=== PATIENT | female | born 1950 | race Caucasian/White ===

== ENCOUNTER → 2017-03-17 08:23 | Outpatient (CLI) | payer MEDICARE | END | disposition home or self-care (01) | LOC: D.CT 08:23 | DX: R94.39 Abnormal result of other cardiovascular function study (principal) ==

== ENCOUNTER 2017-04-05 05:00 | Inpatient (IN) | payer MEDICARE ==
[2017-04-02 09:56] LABS: HEMATOCRIT 41.3 % (36.0-48.0); HEMOGLOBIN 13.3 g/dL (12-16); MCH 29.2 pg (26.0-34.0); MCHC 32.2 g/dL (31.0-37.0); MCV 90.6 fL (80.0-100.0); MEAN PLATELET VOLUME 10.8 fL (7.4-10.4); RBC 4.56 10x6/uL (4.00-5.40); RDW 12.7 % (11.5-14.5); WBC 6.6 10x3/uL (4.8-10.8)
[2017-04-02 10:25] LABS: APPEARANCE HAZY (CLEAR); BILIRUBIN NEGATIVE (NEGATIVE); COLOR YELLOW (YELLOW); GLUCOSE NEGATIVE (NEGATIVE); KETONE NEGATIVE (NEGATIVE); LEUKOCYTE ESTERASE TRACE (NEGATIVE); NITRITE NEGATIVE (NEGATIVE); PROTEIN 1+ mg/dL (NEGATIVE); UROBILINOGEN NORMAL (NORMAL)
[2017-04-02 10:34] LABS: BACTERIA FEW /hpf (NONE SEEN); HYALINE CAST OCC /lpf (NONE SEEN); RED CELLS - URINE RARE /hpf (0-5); WHITE CELLS - URINE 0-5 /hpf (0-5)
[2017-04-02 10:44] LABS: APTT 29.4 SECONDS (22.8-39.4); INR 0.94 (0.85-1.17); PROTIME 12.4 SECONDS (11.6-15.0)
[2017-04-02 10:47] LABS: ALBUMIN 3.8 g/dL (3.4-5.0); ANION GAP 13.7 mmol/L (8-16); BILIRUBIN - TOTAL 0.5 mg/dL (0.2-1.3); CALCIUM 10.3 mg/dL (8.5-10.1); CARBON DIOXIDE 28.8 mmol/L (21.0-32.0); CREATININE - SERUM 1.2 mg/dL (0.6-1.3); POTASSIUM - SERUM 4.5 mmol/L (3.5-5.1); PROTEIN - SERUM 7.9 g/dL (6.4-8.2)
--- NOTE | 2017-04-03 13:26 | HP ---
PATIENT: ERIKA PITTS MEDICAL RECORD: [id number] ACCOUNT: [id number] LOCATION:[facility] : 48 ADMISSION DATE: 04/05/17 HISTORY AND PHYSICAL EXAMINATION ERIKA Patiño (66yo, F) ID# [id number]. Date/Time03/29/2017 01:80DAVFP85 1950[facility] Dept.[facility] ClinicProviderEDMONROE PHILLIPS MDInsuranceMed Primary: [employer] (MEDICARE REPLACEMENT/ADVANTAGE - HMO) Insurance # : [id number] PCP : DANIELLA RENE Referring Provider Name : DANIELLA RENE Employer Name : UNKNOWN Prescription: CMX - Member is eligible. Chief Complaint Carotid stenosis REFERRAL FROM DR RENE Patient's Care Team Primary Care Provider (): DANIELLA RENE: [address] [address], , Referring Provider (): DANIELLA RENE: [address] [place] [address], , Patient's Pharmacies [facility] (ERX): [address] [facility] [address], , Vitals BP:18 4/70 sitting R arm 03/29/2017 01:14 pm 158/72 sitting L arm 03/29/2017 01:15 pmBP Cuff Size:large adult 03/29/2017 01:14 pm large adult 03/29/2017 01:15 pmHR:80,REG 03/29/2017 01:15 pmHt:5 ft 8 in 03/29/2017 01:15 pmWt:230 lbs 03/29/2017 01:16 pmNotes:HAD C/O LEFT LE PAIN, EDGARD SENT HER FOR A CAROTID DOPPLER? THEN A CTA.03/29/2017 01:17 pmBMI:35 03/29/2017 01:16 pmAllergies Reviewed Allergies MORPHINEPENICILLINSSULFA (SULFONAMIDE ANTIBIOTICS)Medications Reviewed Medications Accu-Chek Agustina Control Soln /12/11 howaziJpuhEaxp-CmEzwocliOhcb-Jsgc Multiclix Umgebz72/12/11 filledCareMark-RxAmericaalendronate 70 mg effervescent tablet Take 1 tablet(s) every week by oral route.03/26/17 enteredDelisa Brownalendronate 70 mg rdcnus42/02/17 filledCaremarkAspir-81 1 tablet daily03/26/17 enteredCindonato BrownCaltrate 600 + D 600 mg (1,500 mg)-800 unit chewable tablet Take 1 tablet(s) twice a day by oral route.03/26/17 enteredDelisa PiperdilTIAZem 90 mg wjvufw23/09/17 filledCaremarkglyBURIDE 2.5 mg rihpsp37/17/11 filledCareMark-RxAmericaLasix 20 mg tablet Take 1 tablet(s) every day by oral route as needed.03/26/17 enteredDelisa Piperlosartan 25 mg tablet Take 1 tablet(s) every day by oral route.03/26/17 enteredCindonato Brownlovastatin 20 mg zxkocn53/19/17 filledCaremarkmetFORMIN 1,000 mg xupgte01/19/17 filledCaremarkOneTouch Verio /29/17 filledCaremarkPlavix 75 mg tablet Take 1 tablet(s) every day by oral route.03/29/17 Judit Phillips, MDpotassium chloride ER 10 mEq capsule,extended tlegjxp71/09/17 filledCaremarkPROzac 20 mg capsule Take 1 capsule(s) every day by oral route.03/26/17 enteredDelisa LdizbYekspmnsox62/07/17 enteredDelisa PiperProblems Reviewed Problems HISTORY AND PHYSICAL [id number] ERIKA PITTS Bilateral carotid artery stenosis - Onset: 03/29/2017 Carotid artery stenosis - Onset: 03/26/2017 Disorder of breast Breast lump Family History Discussed Family History Sister- Diabetes mellitus - previously recorded as DiabetesFather- Malignant tumor of prostate - previously recorded as Cancer, ProstateSocial History Discussed Social History General Marital status: Smoking Status: Never smoker Alcohol intake: None Caffeine intake: None Surgical History Reviewed Surgical History Other - hysterectomy none APPLICATION TESTER History (not configured) Past Medical History Discussed Past Medical History Depression: Y - Diabetes: Y - GERD: Y Stroke: Y - Seizures/Epilepsy: N - Notes: ms and raynauds syndrome Documents for Discussion N/A Screening None recorded. HPI Cerebral Vascular Disease Reported by patient. Associated Symptoms: no headache; no nausea; no vomiting; no tinnitus; no difficulty speaking; no lethargy; no fever; no chills; no palpitations; no syncope; no loss of consciousness Notes: HX CVA 1993 critical right internal carotid artery stenosis ROS Patient reports exercise intolerance but reports no fever, n o night sweats, no significant weight gain, and no significant weight loss. She reports muscle aches, muscle weakness, arthralgias/joint pain, and back pain but reports no swelling in the extremities; varicose veins. She reports no dry eyes, no irritation, and no vision change. She reports no difficulty hearing and no ear pain. She reports no frequent nosebleeds and no nose/sinus problems. She reports no sore throat, no bleeding gums, no snoring, no dry mouth, no mouth ulcers, no oral abnormalities, and no teeth problems. She reports no chest pain, no arm pain on exertion, no shortness of breath when walking, no shortness of breath when lying down, no palpitations, and HISTORY AND PHYSICAL [id number] GISSELLEERIKA ANDREY no known heart murmur. She reports no cough, no wheezing, no shortness of breath, and no c oughing up blood. She reports no abdominal pain, no vomiting, normal appetite, no diarrhea, not vomiting blood, no nausea, and no constipation. She reports no incontinence, no difficulty urinating, no hematuria, and no increased frequency. She reports no a bnormal mole, no jaundice, and no rashes. She reports no loss of consciousness, no weakness, no numbness, no seizures, no dizziness, and no headaches. She reports no depression, no sleep disturbances, feeling safe in relationship, and no alcohol abuse. Sh e reports no fatigue. She reports no swollen glands and no bruising. She reports no runny nose, no sinus pressure, no itching, no hives, and no frequent sneezing. ROS as noted in the HPI Physical Exam Patient is a 66-year-old female. Constitutional: General Appearance healthy-appearing and obese. Level of Distress NAD. Ambulation ambulating normally. Cardiovascular: Apical Impulse not displaced or no thrill. Heart Auscultation normal s1 and s2; no murmurs, rubs, or gallops; and RRR. Arterial Pulses no abd ominal aorta bruits, femoral bruits, or popliteal bruits and 2+ bilateral, carotid 2+ bilateral, femoral 2+ bilateral, popliteal 2+ bilateral, and dorsalis pedis 2+ bilateral; right carotid bruit. Edema no edema or varicosities. Lungs: Repiratory Effort no dyspnea. Percussion no hyperresonance or dullness or flatness. Auscultation no wheezing, rhonchi, or rales / crackles and breathing sounds normal, good air movement, and CTA except as noted. Abdomen: Bowl Sounds normal. Inspection and Palpation no tenderness, guarding, masses, or rebound tenderness and soft and non-distended. Liver non-tender and no hepatomegaly. Spleen non-tender and no splenomegaly. Hernia none palpable. Musculoskeletal System: Gait And Stance normal gait and stance. Digits and Nails normal nails and no cyanosis. Neurologic: Cranial Nerves grossly intact. Reflexes DTRs 2+ bilaterally throughout. Sensation grossly intact; aphasia. Lymph Nodes: Lymph Nodes no cervical LAD, supraclavicular LAD, axillary LAD, or inguinal LAD. Eyes: Lids and Conjunctivae no discharge or pallor and non-injected. Pupils PERRLA. Cornea grossly intact. EOM EOMI. Lens clear. Sclera non-icteric. Neck: Neck no masses or enlarged lymph nodes and supple, trachea midline, and carotid bruits (right). Thyroid no enlargement or nodules and non-tender. Skin: Inspection and Palpation no rash, lesions, ulcers, jaundice, or abnormal nevi. Assessment / Plan critical right internal carotid artery stenosis History of stroke and aphasia 1. Carotid artery stenosis I65.29: Occlusion and stenosis of unspecified carotid artery CAROTID STENOSIS: CARE INSTRUCTIONS HISTORY AND PHYSICAL [id number] ERIKA PITTS 2. Bilateral carotid artery stenosis - right greater than 90% area stenosis Left 40-50% stenosis I65.23: Occlusion and stenosis of bilateral carotid arteries Discussion Notes CT angiogram demonstrates greater than a 90% area stenosis of her right internal carotid artery. I have discussed her disease process with her in detail as well as the alternative methods of treatmen t. We discussed right carotid endarterectomy including the expected benefits and risk which included bleeding, infection, stroke, and the imponderables. She understands all of the above and wishes to proceed with planned procedure Plavix 75 mg a day start today Schedule right carotid endarterectomy NATHAN PHILLIPS MD at 1326 CC: [id number] DICTATION DATE: 03/29/17 1315 LARD MAKER: GARRET 04/01/17 1239 PRE IN [facility] [address] [place] [address]
[~2017-04-05] VITALS: Ht 168.9 cm; Wt 106.2 kg
[2017-04-05] VITALS (56 sets, daily range): BP systolic 108–156; BP diastolic 34–50; Ht 168.9 cm; Wt 106.2 kg
--- NOTE | ~2017-04-05 | OP ---
PATIENT NAME: ERIKA PITTS MEDICAL RECORD: [id number] :46 LOCATION:[facility].CV03 ADMISSION DATE:04/05/17 SURGEON: NATHAN PHILLIPS MD OPERATION DATE: 04/05/17 SURGEON: Nathan Phillips M.D. ANESTHESIA: General endotracheal by Dr. Marvin. PROCEDURE: Right carotid endarterectomy with patch angioplasty. PREOPERATIVE DIAGNOSIS: Severe right internal carotid artery stenosis. POSTOPERATIVE DIAGNOSIS: Severe right internal carotid artery stenosis. INDICATION FOR OPERATION: Critical right internal carotid artery stenosis. FINDINGS OF OPERATION: Critical right internal carotid artery stenosis. Very small opening into the internal carotid artery. ESTIMATED BLOOD LOSS: Less than 100 mL. PROCEDURE IN DETAIL: After informed consent, adequate preoperative medication, and evaluation, the patient was brought to the operating room and placed stable in the supine position. After induction of general endotracheal anesthesia and application of appropriate monitoring devices, the right neck and chest were prepped and draped in sterile field utilizing Betadine scrub, alcohol, and Betadine solution. Betadine impregnated drape was also used. An oblique incision was made in the skin crease. Dissection carried down to the fascia. Hemostasis maintained with electrocautery. Facial vein was identified and divided utilizing sharp dissection. The common carotid, internal and external carotid arteries were dissected free of surrounding structures protecting the neurological structures. The patient was given a calculated dose of Heparin. After three minutes, clamps were applied. After two minutes with no EEG change, the arteriotomy was made and extended with Rader scissors. Artery underwent endarterectomy sharply. Artery underwent extensive debridement and irrigation. Utilizing a vascular patch and running 7-0 Prolene suture, the arteriotomy was closed with a patch angioplasty technique. All maneuvers to remove trapped air performed. Clamps removed sequentially. There were no EEG changes. Patient was given a calculated dose of protamine to reverse the Heparin. Hemostasis was achieved. A #7 Tony-Puri drain was left in the depths of the wound and brought out through the base of the neck. Neck was again irrigated. Instrument count and sponge count were correct times two. Neck was closed in layers utilizing 3-0 Vicryl on the platysma and 5-0 subcuticular Monocryl on the skin. Sterile dressings were applied. The patient tolerated the procedure well and was transferred to the Cardiovascular-Intensive Care Unit in satisfactory condition. OPERATIVE REPORT [id number] ERIKA PITTS EDWARD MD CC: [id number] DICTATION DATE: 04/05/17999 SAP PPM CONSULTANT: GARRET 04/05/17 1124 ADM IN [place] [id number] [place] [address]
[~2017-04-05 05:00] MED LIST: ALENDRONATE SOD70 MG PO; ASPIRIN EC81 M1 PO; CALTRATE+D3 PL1 EACH PO; CARDIZEM 90 MG90 MG PO; COZAAR25 MG PO; FUROSEMIDE20 MG PO; GLUCOPHAGE1000 MG PO; GLYBURIDE2.5 MG PO; KLOR-CON 1010 MEQ PO; LOVASTATIN20 MG PO; PLAVIX75 MG PO; PROZAC20 MG PO; REGLAN10 MG PO; ZANTAC150 MG PO
--- NOTE | 2017-04-05 10:24 | NUR ---
PT ARRIVED BY BED FROM OR. SWITCHED TO ICU MONITORS. ASSESSMENT COMPLETED. PT HAS HISTORY OF DYSPHASIA. UNABLE TO SPEAK DUE TO CVA APPROX 20 YEARS AGO. REPORTS THAT SHE CAN TAKE P.O. MEDS WITH SIPS OF WATER AND MECHANICAL SOFT DIET.
--- NOTE | 2017-04-05 11:00 | NUR ---
FAMILY AT BEDSIDE WITH DR. PHILLIPS. UPDATED ON PT'S STATUS.
--- NOTE | 2017-04-05 13:15 | NUR ---
PT RESTING COMFORTABLY. DENIES PAIN AT THIS TIME. CALL LIGHT WITHIN REACH.
--- NOTE | 2017-04-05 18:08 | NUR ---
FAMILY AT BEDSIDE. UPDATED ON PT'S STATUS. PT DOES NOT WANT FOOD AT THIS TIME. ONLY WANTING LIQUIDS. TOLERATING WELL.
--- NOTE | 2017-04-05 19:30 | NUR ---
Assessment complete. See flowsheet. Pt awake upon entrance into room with VSS. Pt with history of expressive aphasia from previous stroke but nodding head to questioning and following all commands to move extremities with 4/5 strength noted to all extremities. Pupils size 3 bilaterally ERRLA. Respirations even and unlabored. Pt receiving O2 @ 3L NC. Lung sounds clear to all rodriguez with diminished lower lobes. HR SR with S1S2 auscultated. All peripheral pulses +2 with capillary refill <3 seconds. No edema noted. Left radial JERRY site CDI; zeroed and balanced showing good waveform with appropriate dichrotic notch. Left DLSC CVL site CDI no s/s infection or infiltration with CVP zeroed and balanced reading 12 currently. Plasmalyte infusing @ 30cc/hr with Cleviprex gtt infusing @ 15mg/hr and increased to 17mg/hr during assessment to maintain SBP < 140mmHg. Abdomen soft, non-tender with BS present to all quadrants. Ramirez catheter secure retrieving clear, yellow urine. Right upper chest BRIANNA drain compressed retrieving scant amount sanguanous blood. Right carotid incision site dressing CDI with NO drainage noted to site. Pt denies pain at this time and sitting up in bed with HOB approx 40 degrees. Temp 37.6C per criticore. Call light and bedside table within pt reach. Icepack to right neck refreshed. CPOC.
--- NOTE | 2017-04-05 21:30 | NUR ---
Pt repositioned to right side with minimal assistance after PM medication administration. FSBS 179mg/dL and covered per S/S. Fresh water provided per pt request. No other changes to note. Call light and bedside table remain within reach. CPOC.
--- NOTE | 2017-04-05 22:30 | NUR ---
Cleviprex gtt increased to 20mg/hr to achieve SBP < 140
--- NOTE | 2017-04-05 22:30 | NUR ---
Cleviprex gtt rate increased to 40mg/hr to achieve SBP < 140
--- NOTE | 2017-04-05 23:30 | NUR ---
Reassessment complete. See flowsheet. Pt awake upon entrance into room with no neuro changes to note. O2 @ 3L NC. Lung sounds remain clear to all rodriguez with diminished lower lobes. Carotid incision site CDI; unchanged. Ice pack remains to site. Pt denies pain at this time. HR SR with occasional PVCs noted. S1S2 auscultated. All peripheral pulses remain +2 with capillary refill <3 seconds. JERRY site CDI, zeroed and balanced showing good waveform with appropriate dichrotic notch. CVL site CDI with NO IVF changes to note. BS present to all quadrants. Criticore west catheter remains secure retrieving clear/yellow urine. Pt repositioned to right side. HOB @ 40 degrees. Heels and arms bridged. BRIANNA drain to right upper chest remains compressed and retrieving scant sanguanous fluid. KINZA/SCDs secure. Call light and bedside table remain within pt reach. CPOC.
[2017-04-06] VITALS (33 sets, daily range): BP systolic 111–140; BP diastolic 43–51
--- NOTE | 2017-04-06 01:30 | NUR ---
Pt repositioned. HOB lowered to 30 degrees. Arms and heels repositioned. JERRY site zeroed and balanced. NO IVF changes to note. Pain denied. No neuro changes to note. CPOC.
--- NOTE | 2017-04-06 02:42 | NUR ---
Cleviprex gtt rate decreased to 18mg/hr
--- NOTE | 2017-04-06 03:30 | NUR ---
Reassessment complete. See flowsheet. No neuro changes to note. Cleviprex gtt rate weaned to 18mg/hr for SBP 120s. Will continue to attempt full wean of medication with maintenance of SBP < 140mmHg. Incision site remains CDI; unchanged with BRIANNA drain compressed with no fluid in bulb. CVL site CDI. JERRY site zeroed and balanced. Lung sounds remain CTA. Respirations shallow/unlabored. HR SR. S1S2 auscultated. BS +. Ramirez remains secure retrieving clear/yellow urine. Pain denied. Pt refuses repositioning at this time. No request. Call light and bedside table remain within reach. CPOC.
--- NOTE | 2017-04-06 03:41 | NUR ---
Cleviprex gtt weaned to 16mg/hr. Pt helped with sips of water.
--- NOTE | 2017-04-06 04:24 | NUR ---
Cleviprex gtt decreased to 14mg/hr
--- NOTE | 2017-04-06 05:30 | NUR ---
Pt resting with VSS. Cleviprex gtt decreased to 10mg/hr
--- NOTE | 2017-04-06 05:55 | NUR ---
Samira York here with update given and questions addressed. BRIANNA drain removed with tegaderm dressing applied.
--- NOTE | 2017-04-06 06:01 | NUR ---
Cleviprex gtt weaned to 8mg/hr
--- NOTE | 2017-04-06 06:44 | NUR ---
Cleviprex gtt turned off. VSS. Pt resting.
--- NOTE | 2017-04-06 07:48 | NUR ---
0730 REPORT RECEIVED AND CARE ASSUMED OF PT. SEE FLOW SHEET FOR AM ASSESMENT.. PT IS SLEEPING EASILY ROUSED AT THIS TIME AND RESPONSIVE.. PT IS APHASIC .. FOLLOWS COMMANDS.. CLEVPREX IV FLUID IS OFF AT THIS TIME BP SYS IS 136
--- NOTE | 2017-04-06 10:00 | NUR ---
LEFT RADIAL A-LINE D/C'D WITH CATH TIP INTACT. PT TOLERATED WELL. VSS. NICHOLSON CATHETER D/C'D PER MD ORDERS. PT TOLERATED WELL.
--- NOTE | 2017-04-06 10:15 | NUR ---
PHYSICAL THERAPY AT BEDSIDE. PT ASSISTED UP TO CHAIR. TOLERATED WELL. CALL LIGHT WITHIN REACH.
--- NOTE | 2017-04-06 12:30 | NUR ---
PT AMBULATED WITHOUT DIFFICULTY. TOLERATED WELL.
--- NOTE | 2017-04-06 12:57 | NUR ---
* Is the patient Alert and Oriented? Yes 0 * How many steps to enter\exit or inside your home? 0 0 * PCP Dr. Dillard 0 * Pharmacy [facility] on [address] 0 * Preadmission Environment Home with Family 0 * ADLs Independent 0 * List name and contact numbers for known caregivers / representatives who currently or will assist patient after discharge: Spouse - Edy [phone] 0 * Additional services required to return to the preadmission environment? No 0 * Can the patient safely return to the preadmission environment? Yes 0 * Has this patient been hospitalized within the prior 30 days at any hospital? No 0 Patient Name: ERIKA PITTS Admission Status: Elective Accout number: [id number] Admission Date: 04-05-2017 : 1950 Admission Diagnosis:OCCLUSION AND STENOSIS OF BILATERAL CAROTID ARTERIES Attending: RAIN Current LOS: 1 Anticipated DC Date: 04-06-2017 Planned Disposition: Home [facility] Discharge Planning Comments: CM met with patient to assess dc plans/needs. Patient uses [employer] to communicate. She writes that she lives at home with her & that she is independent with all ADL's & IADL's. She does not use any assistive devices or had home health services in the past. At dc, she will return home with her . No needs identified or verbalized at this time. CM will follow. Nutrition Worker: Tiffanie Fam
--- NOTE | 2017-04-06 13:30 | NUR ---
LEFT DLSC D/C'D WITH CATH TIP INTACT. PT TOLERATED WELL. NO S/S OF DISTRESS NOTED.
--- NOTE | 2017-04-06 13:50 | NUR ---
DISCUSSED DISCHARGE INSTRUCTIONS WITH PT AND PT'S . HE VOICED UNDERSTANDING. THEY REPORT THEY HAVE ALL BELONGINGS IN HAND. PT TAKEN BY WHEELCHAIR TO VEHICLE. NO S/S OF DISTRESS NOTED.
== END 2017-04-06 13:50 | disposition home or self-care (01) | DRG 39 ==
LOC: D.CVICU 05:00 → D.SDCHOLD 05:00 → D.CVICU 10:19
PROVIDERS: ADMIT Internal Medicine Cardiovascular Disease
PROC: 03UK0JZ Supplement Right Internal Carotid Artery with Synthetic Substitute, Open Approach (ICD-10-PCS; 2017-04-05)
PROC: 03CK0ZZ Extirpation of Matter from Right Internal Carotid Artery, Open Approach (ICD-10-PCS; principal; 2017-04-05 07:30)
DX: I65.23 Occlusion and stenosis of bilateral carotid arteries (principal); E11.9 Type 2 diabetes mellitus without complications; F32.9 Major depressive disorder, single episode, unspecified; K21.9 Gastro-esophageal reflux disease without esophagitis; E78.5 Hyperlipidemia, unspecified; I10 Essential (primary) hypertension; Z86.73 Personal history of transient ischemic attack (TIA), and cerebral infarction without residual deficits

== ENCOUNTER 2017-04-08 01:55 | Emergency (ER) | payer MEDICARE ==
[2017-04-05 10:31] VITALS: BMI 37.2
== END 2017-04-08 02:14 ==
LOC: D.ER 01:55
DX: I46.9 Cardiac arrest, cause unspecified (principal)